=== PATIENT | female | born 1985 | race Caucasian/White ===

== ENCOUNTER 2019-09-13 09:11 | Outpatient (CLI) | payer BC ==
--- NOTE | 2019-09-13 10:00 | RAD ---
EXAM: 2 views of the abdomen HISTORY: Diarrhea and bloating COMPARISON: None FINDINGS: 2 views of the abdomen shows a nonspecific, nonobstructive bowel gas pattern. No free air o r air-fluid levels are seen on upright examination. No suspicious calcifications are seen. An IUD is seen in the pelvis. The bones are unremarkable. IMPRESSION: No evidence of bowel obstruction.
== END 2019-09-13 09:12 | disposition home or self-care (01) ==
LOC: SCSRAD 09:11
PROVIDERS: ATTEND Family Medicine
DX: R19.7 Diarrhea, unspecified (principal)
CPT/HCPCS: 36415; 74019; 82150; 83690; 87045; 87046; 87427; 87449